=== PATIENT | male | born 1945 | race Caucasian/White ===

== ENCOUNTER → 2018-05-17 | Outpatient (CLI) | payer MEDICARE | END | disposition home or self-care (01) | LOC: PLD 10:29 → LAB SHORT 10:29 | DX: L30.8 Other specified dermatitis (principal) | CPT/HCPCS: 88305 ==

== ENCOUNTER 2018-11-18 18:17 | Inpatient (IN) | payer MEDICARE ==
[~2018-11-18] VITALS: Ht 188 cm; Wt 108.5 kg
[2018-11-18 18:59] LABS: BASOPHILS ABSOLUTE AUTO 0.05 K/mm3 (0.00-0.23); BASOPHILS PERCENT AUTO 1 % (0-2); EOSINOPHILS ABSOLUTE AUTO 0.29 K/mm3 (0.00-0.68); EOSINOPHILS PERCENT AUTO 3 % (0-6); Hematocrit 43.3 % (37.0-53.0); Hemoglobin 14.3 g/dL (13.5-17.5); IMMATURE GRAN ABSOLUTE AUTO 0.03 K/mm3 (0.00-0.10); IMMATURE GRAN PERCENT AUTO 0 % (0-1); LYMPHOCYTES ABSOLUTE AUTO 2.75 K/mm3 (0.84-5.20); LYMPHOCYTES PERCENT AUTO 27 % (21-46); MONOCYTES ABSOLUTE AUTO 0.91 K/mm3 (0.16-1.47); MONOCYTES PERCENT AUTO 9 % (4-13); Mean Corpuscular HGB 32.6 pg (26.0-34.0); Mean Corpuscular Volume 99 fL (80-100); Mean Platelet Volume 9.7 fL (9.1-12.4); NEUTROPHILS ABSOLUTE AUTO 6.36 K/mm3 (1.96-9.15); NEUTROPHILS PERCENT AUTO 61 % (41-73); Platelet Count 203 K/mm3 (150-400); RDW Coefficient Variation 12.1 % (11.7-14.2); RDW Standard Deviation 44.2 fL (35.1-46.3); Red Blood Cell Count 4.39 M/mm3 (4.30-5.90); White Blood Cell Count 10.39 K/mm3 (4.00-11.30)
[2018-11-18] MEDS ORDERED: TADA10TA (19:12)
[2018-11-18 19:24] LABS: Alanine Aminotransfer (ALT/SGP 19 U/L (12-78); Albumin, Blood 3.7 g/dL (3.4-5.0); Albumin/Globulin Ratio 1.2 (0.8-1.8); Alk Phos 94 U/L (50-136); Anion Gap 5 mmol/L (6-16); Aspartate Aminotrans (AST/SGOT 18 U/L (12-37); Bilirubin, Total 0.3 mg/dL (0.1-1.0); Blood Urea Nitrogen 13 mg/dL (8-24); Bun/Creatinine Ratio 14.5 (12.0-20.0); CO2, Blood 25 mmol/L (21-32); Calcium, Blood 8.4 mg/dL (8.5-10.1); Chloride, Blood 109 mmol/L (98-108); Globulin, Blood 3.2 g/dL (2.2-4.0); Glomerular Filtration Rate >60 (60-); Glucose, Blood 112 mg/dL (70-99); Potassium, Blood 3.9 mmol/L (3.5-5.5); Sodium, Blood 139 mmol/L (136-145); Total Protein, Blood 6.9 g/dL (6.4-8.2)
[2018-11-18 20:49] LABS: International Normalized Ratio 1.01; Prothrombin Time Results 10.7 Sec (9.7-11.5)
[2018-11-18] MEDS ORDERED: TRIA15CR3 TOP (23:04)
[2018-11-18] MEDS ORDERED: Hydrocortisone30 G4 TOP (23:06)
--- NOTE | 2018-11-19 04:42 | NUR ---
*SHIFT SUMMARY* PATIENT ARRIVED TO ROOM VIA WHEELCHAIR FROM ED. PATIENT IS SBA, GAIT IS STEADY. PT IS ALERT AND ORIENTED. ASKING ABOUT WHAT THE PLAN IS FOR TOMORROW. EXPLAINED TO PATIENT THAT PER REPORT FROM THE SPLASH LINE OPERATOR, THE DOCTOR WAS WANTING TO ADMIT OVER NIGHT AND RECHECK LABS IN THE AM TO SEE IF HBG IS STILL STABLE AND ORDERED A CONSULTATION FOR A GI SPECIALIST, AND POSSIBLY A COLONOSCOPY BUT DID NOT HAVE A TIME TO WHEN THAT WOULD HAPPEN. PATIENT INFORMED WE NEEDED A STOOL SAMPLE. VITAL SIGNS WNL. PT HAS NO COMPLAINTS OF PAIN. PATIENT ASKED IF HE WOULD BE ABLE TO GET SOME UNINTERRUPTED SLEEP. THIS RN INFORMED PATIENT WE WOULD LET HIM SLEEP, HOWEVER LAB WOULD COME AROUND 0400 TO COLLECT BLOOD SAMPLES. PATIENT IS SATISFIED WITH THIS. CALL LIGHT WITHIN REACH, BED LOWERED AND LOCKED.
[2018-11-19 05:26] LABS: Hematocrit 35.6 % (37.0-53.0); Hemoglobin 11.9 g/dL (13.5-17.5)
--- NOTE | 2018-11-19 10:58 | NUR ---
DR. MAY IN TO SEE PT THIS MORNING APPROX 0900. SPOKE WITH HIM ABOUT POTENETIAL COLONOSCOPY AND GI MD TO BE IN TO SEE HIM. I EXPLAINED TO PT NORMAL PROCESS OF CONSULTS AND COLONOSCOPY PREPS. PT EXPRESSED CONCERN ABOUT HIS HOME AND NOT TAKING HIS SUPPLEMENTS. ENCOURAGED PT TO DISCUSS CONCERNS TO GI MD WHEN HE CAME TO SEE PT. PT REPORTED HE WAS GOING TO LEAVE TODAY ONE WAY OR THE OTHER. APPROX 1015 PT CAME OUT OF ROOM DRESSED AND STATING HE WAS JUST GOING HOME TO GET HIS STUFF IN ORDER AND HE WOULD BE BACK. EXPLAINED TO PT HE IS NOT ABLE TO GO HOME AND COME BACK DUE TO SAFETY ISSUSES AND IF HE WERE TO RETURN HE WOULD NEED TO COME BACK THROUGH THE ED. OFFERED TO CALL GI MD AND SEE HOW LONG IT WOULD BE BEFORE HE CAME TO SEE PT. WHILE ON PHONE WAITING TO SPEAK WITH MD PT CAME OUT AND STATED HE WASN'T GOING TO WAIT ANY LONGER AND THAT HE HAD TO GET HOME TO CHECK HIS HOUSE AND TAKE HIS SUPPLEMENTS. ANSWERING SERVICE WHO I WAS ON THE PHONE WITH STATED THEY WILL CANCEL GI CONSULT. SPOKE WITH DR. MAY AFTER PT SIGNED HIMSELF OUT AMA AT 1030.
[2018-11-19 11:54] LABS: Adenovirus F 40/41 Not Detected (NOT DETECT); Astrovirus Not Detected (NOT DETECT); Campylobacter Sp Not Detected (NOT DETECT); Cryptosporidium Not Detected (NOT DETECT); Cyclospora Cayetanensis Not Detected (NOT DETECT); E. Coli O157 Not Detected (NOT DETECT); Entamoeba Histolytica Not Detected (NOT DETECT); Enteroaggregative E. coli-EAEC Not Detected (NOT DETECT); Enteropathogenic E. coli-EPEC Not Detected (NOT DETECT); Enterotoxigenic E. coli-ETEC Not Detected (NOT DETECT); Giardia Lamblia Not Detected (NOT DETECT); Norovirus GI/GII Not Detected (NOT DETECT); Plesiomonas Shigelloides Not Detected (NOT DETECT); Rotavirus A Not Detected (NOT DETECT); Salmonella Sp Not Detected (NOT DETECT); Sapovirus Not Detected (NOT DETECT); Shiga Toxin-prod E. coli-STEC Not Detected (NOT DETECT); Shigella/Enteroin E. coli-EIEC Not Detected (NOT DETECT); Vibrio Cholerae Not Detected (NOT DETECT); Vibrio Sp Not Detected (NOT DETECT); Yersinia Enterocolitica Not Detected (NOT DETECT)
[2018-11-24] MEDS ORDERED: MSM1000 MG PO (14:28)
[2018-11-24] MEDS ORDERED: Cialis5 MG PO (14:28)
[2018-11-24] MEDS ORDERED: Aspirin325 MG PO (14:28)
[2018-11-24] MEDS ORDERED: CHOL10002 PO (14:29)
[2018-11-24] MEDS ORDERED: FLAX PO (14:29)
[2018-11-24] MEDS ORDERED: [UNRECOGNIZED DRUG - OTHER] (14:29)
[2018-11-24] MEDS ORDERED: Saw Palmetto160 MG PO (14:29)
== END 2018-11-19 10:36 | disposition left against medical advice (07) | DRG 379 ==
LOC: ER 18:17 → MEDS 22:40
PROVIDERS: Emergency Medicine; Nurse Practitioner Acute Care; Physician Assistant; ADMIT Internal Medicine
DX: K92.2 Gastrointestinal hemorrhage, unspecified (principal); I10 Essential (primary) hypertension; L08.89 Other specified local infections of the skin and subcutaneous tissue
CPT/HCPCS: 36415; 74177; 80053; 85014; 85018; 85025; 85610; 85730; 86850; 86900; 86901; 87507; 96365-59; 96367-59; 99284-25; J0744; J7030; Q9967

== ENCOUNTER 2018-11-25 06:49 | Day surgery (SDC) | payer MEDICARE ==
[~2018-11-25] VITALS: Ht 188 cm; Wt 106.7 kg
[~2018-11-25 06:49] MED LIST: Aspirin325 MG PO; CHOL10002 PO; Cialis5 MG PO; FLAX PO; Hydrocortisone30 G4 TOP; MSM1000 MG PO; Saw Palmetto160 MG PO; TADA10TA; TRIA15CR3 TOP; [UNRECOGNIZED DRUG - OTHER]
== END 2018-11-25 09:35 | disposition home or self-care (01) ==
LOC: ORSCSDS 06:49
DX: K62.5 Hemorrhage of anus and rectum (principal); C20 Malignant neoplasm of rectum; D12.0 Benign neoplasm of cecum; D12.3 Benign neoplasm of transverse colon; D12.8 Benign neoplasm of rectum; K57.30 Diverticulosis of large intestine without perforation or abscess without bleeding
CPT/HCPCS: 88305; J0330; J1980; J2405; J7120